=== PATIENT | female | born 1975 | race African-American/Black ===

== ENCOUNTER 2017-01-21 09:20 | Emergency (ER) | payer OTHER ==
[~2017-01-21] VITALS: Ht 162.6 cm; Wt 61.2 kg
[~2017-01-21 09:20] MED LIST: ACET12.5 PO; ALBU8.5H6 IH; ALPR1TAB10 PO; LAMO200T PO; ZOLP5TAB5 PO
[2017-01-21 09:36] VITALS: BP 144/95
[2017-01-21] MEDS ORDERED: OFLO5DRO OD (10:11)
--- NOTE | 2017-01-21 10:12 | PHYS DOC ---
Past Medical History Past Medical History: Bipolar, Bronchitis, Hypertension Past Surgical History: No Surgical History Smokin Pack Per Day Alcohol Use: None Drug Use: None Adult General Chief Complaint Chief Complaint: EYE PROBLEMS HPI HPI Patient is a 41 year old female who presents with right eye itching and drainage starting last night. She woke up this morning with the eye matted shut. She has swelling of the right upper eyelid and aching in the eye. She denies any change in her vision. She has no injury to the eye. She does not wear glasses or contacts. Two of her 3 children were recently diagnosed with pinkeye. Her PCP is Dr. Khoury. Review of Systems Review of Systems Constitutional: Denies fever or chills. [] Eyes: Denies change in visual acuity. Reports right eye itching, drainage, right upper eyelid swelling, and pain. HENT: Denies ear pain, nasal congestion or sore throat. [] Respiratory: Denies cough or shortness of breath. [] Integument: Denies rash or skin lesions. [] Neurologic: Denies headache, focal weakness or sensory changes. [] Allergies Allergies Allergies Coded Allergies Type Severity Reaction Last Updated Verified No Known Drug Allergies 10/27/13 No Physical Exam Physical Exam Constitutional: Well developed, well nourished, no acute distress, non-toxic appearance. [] HENT: Normocephalic, atraumatic, bilateral external ears normal, oropharynx moist, no oral exudates, nose normal. [] Eyes: PERRLA, EOMI, conjunctiva normal. There is dried purulent drainage in the medial canthus of the right eye. There is mild edema of the right upper eyelid. Neck: Normal range of motion, no tenderness, supple, no stridor. [] Skin: Warm, dry, no erythema, no rash. [] Neurologic: Alert and oriented X 3, normal motor function, normal sensory function, no focal deficits noted. [] Psychologic: Affect normal, judgement normal, mood normal. [] Current Patient Data Vital Signs Vital Signs Date Time Temp Pulse Resp B/P Pulse Ox O2 Delivery O2 Flow Rate FiO2 01/21/17 09:36 97.7 63 20 98 Room Air 97.7 EKG EKG [] Radiology/Procedures Radiology/Procedures [] Course & Med Decision Making Course & Med Decision Making Pertinent Labs and Imaging studies reviewed. (See chart for details) [] Dragon Disclaimer Dragon Disclaimer This electronic medical record was generated, in whole or in part, using a voice recognition dictation system. Departure Departure Impression: Primary Impression: Conjunctivitis Disposition: 01 HOME, SELF-CARE Condition: STABLE Referrals: YAMIL KHOURY MD (PCP) Fely SOARSE MD Patient Instructions: Bacterial Conjunctivitis, [id number] Additional Instructions: You were seen today for pinkeye. Please use the prescribed antibiotic eyedrops as directed. Please wash your hands frequently and practice good hand hygiene to avoid spreading the infection to the other eye or to other people. Please follow-up with the state farm agent listed below if you have any change in her vision or worsening of your eye. Return to the emergency department if any new or concerning symptoms. Scripts Ofloxacin (Ocuflox)5 Ml Drops1-2 Drop OD QID 7 Days Prov:RODRIGUEZ CRUZ 01/21/17 Problem Qualifiers Primary Impression: Conjunctivitis Conjunctivitis type: acute Acute conjunctivitis type: unspecified Laterality: right Qualified Code: H10.31 - Unspecified acute conjunctivitis, right eye RODRIGUEZ CRUZ Jan 21, 2017 10:11
== END 2017-01-21 10:15 | disposition home or self-care (01) ==
LOC: ER 09:20
DX: H10.31 Unspecified acute conjunctivitis, right eye (principal); I10 Essential (primary) hypertension; F31.9 Bipolar disorder, unspecified; F17.200 Nicotine dependence, unspecified, uncomplicated
CPT/HCPCS: 99283

== ENCOUNTER 2017-05-14 09:14 | Emergency (ER) | payer MEDICAID, OTHER ==
[~2017-05-14] VITALS: Ht 162.6 cm; Wt 61.2 kg
[~2017-05-14 09:14] MED LIST changes: +OFLO5DRO OD
[2017-05-14 09:20] VITALS: BP 165/91
[2017-05-14] MEDS ORDERED: PROAIR HFA8.5 GM INH (09:52)
[2017-05-14] MEDS ORDERED: AZIT250T PO (09:52)
[2017-05-14] MEDS ORDERED: PRED20TA PO (09:52)
--- NOTE | 2017-05-14 09:52 | PHYS DOC ---
Past Medical History Past Medical History: Bipolar, Bronchitis, Hypertension Past Surgical History: No Surgical History Alcohol Use: None Drug Use: None Adult General Chief Complaint Chief Complaint: COUGH HPI HPI Patient is a 41 year old female presents emergency department stating that she' s had a cough for the last 2 weeks. Patient states that she does have a history of smoking and her daughter is comes that she has been chain smoking. Patient states that she's been having some fever and chills on and off. Shunt states that her cough is sometimes productive with been a clear yellow to greenish color. Patient denies any shortness of air difficulty breathing. Patient does state she's had a history of bronchitis but that's been years ago. Review of Systems Review of Systems Constitutional: hx fever Eyes: Denies change in visual acuity, redness, or eye pain [] HENT: Denies nasal congestion or sore throat [] Respiratory: cough denies shortness of breath [] Cardiovascular: No additional information not addressed in HPI [] GI: Denies abdominal pain, nausea, vomiting, bloody stools or diarrhea [] : Denies dysuria or hematuria [] Musculoskeletal: Denies back pain or joint pain [] Integument: Denies rash or skin lesions [] Neurologic: Denies headache, focal weakness or sensory changes [] Endocrine: Denies polyuria or polydipsia [] Allergies Allergies Allergies Coded Allergies Type Severity Reaction Last Updated Verified No Known Drug Allergies 10/27/13 No Physical Exam Physical Exam Constitutional: Well developed, well nourished, no acute distress, non-toxic appearance. [] HENT: Normocephalic, atraumatic, bilateral external ears normal, oropharynx moist, no oral exudates, nose normal. Bilateral tympanic membranes appear to be normal. Throat with erythematous. Nares appears to have nasal drainage and appears to be erythematous. Eyes: PERRLA, EOMI, conjunctiva normal, no discharge. [] Neck: Normal range of motion, no tenderness, supple, no stridor. [] Cardiovascular:Heart rate regular rhythm, no murmur [] Lungs & Thorax: Bilateral breath sounds clear to auscultation [] Skin: Warm, dry, no erythema, no rash. [] Back: No tenderness Extremities: No tenderness, no cyanosis, no clubbing, ROM intact, no edema. [] Neurologic: Alert and oriented X 3, normal motor function, normal sensory function, no focal deficits noted. [] Psychologic: Affect normal, judgement normal, mood normal. [] Current Patient Data Vital Signs Vital Signs Date Time Temp Pulse Resp B/P (MAP) Pulse Ox O2 Delivery O2 Flow Rate FiO2 05/14/17 09:20 98.2 75 20 97 Room Air 98.2 EKG EKG [] Radiology/Procedures Radiology/Procedures [] Course & Med Decision Making Course & Med Decision Making Pertinent Labs and Imaging studies reviewed. (See chart for details) Placed on prednisone, Zithromax, and a pro-air. Patient was encouraged to stop smoking. Patient was also encouraged to use Tylenol or ibuprofen for fever chills or generalized body aches and discomfort. Also recommended plenty of fluids. Patient agrees with discharge instructions, treatment regimens and follow-up recommendations. Signs and symptoms to return back to emergency department been provided. Patient agrees with discharge instructions treatment regimens and follow-up recommendations. [] Dragon Disclaimer Dragon Disclaimer This electronic medical record was generated, in whole or in part, using a voice recognition dictation system. Departure Departure Impression: Primary Impression: Bronchitis Disposition: HOME, SELF-CARE Condition: STABLE Referrals: YAMIL MISHRA MD (PCP) Patient Instructions: Acute Bronchitis, [id number], Smoking Cessation, Tips For Success, Smoking, You Can Quit, [id number] Additional Instructions: Activity as tolerated Medication as prescribed Tylenol or Ibuprofen for fever, chills, or generalized body aches Drink plenty of fluids Stop smoking Followup with primary care provider in 3-5 days Return to emergency department as needed for sign and symptoms that become worse. Scripts Azithromycin (ZITHROMAX) 250 Mg Tablet 250 MG PO DAILY for ANTI-BIOTIC, #6 TAB 0 Refills Take 2 tablets today then 1 tablet daily until gone Prov: TANG GORDON NETWORK DEVELOPMENT COORDINATOR 05/14/17 Albuterol Sulfate (PROAIR HFA INHALER) 8.5 Gm Hfa.aer.ad 1 PUFF INH PRN Q6HRS Y for SHORTNESS OF BREATH, #1 INHALER 0 Refills Prov: TANG GORDON NETWORK DEVELOPMENT COORDINATOR 05/14/17 Prednisone (PREDNISONE) 20 Mg Tablet 40 MG PO DAILY, #14 TAB Prov: TANG GORDON NETWORK DEVELOPMENT COORDINATOR 05/14/17 TANG GORDON APRN May 14, 2017 09:52
== END 2017-05-14 10:01 | disposition home or self-care (01) ==
LOC: ER 09:14
DX: J20.9 Acute bronchitis, unspecified (principal); I10 Essential (primary) hypertension; F17.210 Nicotine dependence, cigarettes, uncomplicated; F31.9 Bipolar disorder, unspecified
CPT/HCPCS: 99283

== ENCOUNTER 2018-09-23 23:04 | Emergency (ER) | payer OTHER ==
[~2018-09-23] VITALS: Ht 167.6 cm; Wt 61.2 kg
[~2018-09-23 23:04] MED LIST changes: +AZIT250T PO; -LAMO200T PO; +LAMO200T2 PO; +PRED20TA PO; +PROAIR HFA8.5 GM INH
[2018-09-23] MEDS ORDERED: DEXAMETHASONE SOD PHOS 20 MG/5 ML VIAL. IV ONE (23:45)
[2018-09-23] MEDS ORDERED: diphenhydrAMINE 50 MG/ML VIAL IV ONE (23:45)
[2018-09-23] MEDS ORDERED: FAMOTIDINE 20 MG/2 ML VIAL IVP ONE (23:45)
[2018-09-24 00:46] LABS: BASO # 0.1 x10^3/uL (0.0-0.2); BASO % 1 % (0-3); EOS # 0.1 x10^3/uL (0.0-0.7); EOS % 1 % (0-3); HEMATOCRIT 34.2 % (36.0-47.0); HEMOGLOBIN 11.5 g/dL (12.0-15.5); LYMPH # 1.9 x10^3/uL (1.0-4.8); LYMPH % 30 % (24-48); MEAN CORPUSCULAR HEMOGLOBIN 29 pg (25-35); MEAN CORPUSCULAR HGB CONC 34 g/dL (31-37); MEAN CORPUSCULAR VOLUME 87 fL (79-100); MONO # 0.6 x10^3/uL (0.0-1.1); MONO % 10 % (0-9); NEUT # 3.7 x10^3uL (1.8-7.7); NEUT % 58 % (31-73); PLATELET COUNT 273 x10^3/uL (140-400); RED BLOOD COUNT 3.91 x10^6/uL (3.50-5.40); RED CELL DISTRIBUTION WIDTH 14.4 % (11.5-14.5); WHITE BLOOD COUNT 6.4 x10^3/uL (4.0-11.0)
[2018-09-24 00:55] LABS: CREATININE 0.7 mg/dL (0.6-1.0); POTASSIUM 3.5 mmol/L (3.5-5.1)
[2018-09-24 01:01] LABS: ALBUMIN 3.3 g/dL (3.4-5.0); ALBUMIN/GLOBULIN RATIO 0.8 (1.0-1.7); MAGNESIUM 1.8 mg/dL (1.8-2.4); TOTAL BILIRUBIN 0.3 mg/dL (0.2-1.0); TOTAL PROTEIN 7.3 g/dL (6.4-8.2)
[2018-09-24 01:41] VITALS: BP 146/86
[2018-09-24] MEDS ORDERED: FAMO-63 PO (02:14)
[2018-09-24] MEDS ORDERED: DIPH25CA58 PO (02:14)
[2018-09-24] MEDS ORDERED: PRED20TA PO (02:14)
--- NOTE | 2018-09-24 02:14 | PHYS DOC ---
Past Medical History Past Medical History: Bipolar, Bronchitis, Hypertension Past Surgical History: No Surgical History Alcohol Use: Occasionally Drug Use: None Adult General Chief Complaint Chief Complaint: ALLERGIC REACTION HPI HPI Patient is a 43 year old [f__sex] who presents with [] Review of Systems Review of Systems Constitutional: Denies fever or chills [] Eyes: Denies change in visual acuity, redness, or eye pain [] HENT: Denies nasal congestion or sore throat [] Respiratory: Denies cough or shortness of breath [] Cardiovascular: No additional information not addressed in HPI [] GI: Denies abdominal pain, nausea, vomiting, bloody stools or diarrhea [] : Denies dysuria or hematuria [] Musculoskeletal: Denies back pain or joint pain [] Integument: Denies rash or skin lesions [] Neurologic: Denies headache, focal weakness or sensory changes [] Endocrine: Denies polyuria or polydipsia [] All other systems were reviewed and found to be within normal limits, except as documented in this note. Current Medications Current Medications Current Medications Medications (Trade) Dose Ordered Sig/Suha Start Time Stop Time Status Last Admin Dose Admin Dexamethasone Sodium Phosphate (Decadron) 10 mg 1X ONCE 09/23/18 23:45 09/23/18 23:46 DC 09/23/18 23:57 10 MG Diphenhydramine HCl (Benadryl) 50 mg 1X ONCE 09/23/18 23:45 09/23/18 23:46 DC 09/23/18 23:57 50 MG Famotidine (Pepcid Vial) 20 mg 1X ONCE 09/23/18 23:45 09/23/18 23:46 DC 09/24/18 00:21 20 MG Allergies Allergies Allergies Coded Allergies Type Severity Reaction Last Updated Verified No Known Drug Allergies 10/27/13 No Physical Exam Physical Exam Constitutional: Well developed, well nourished, no acute distress, non-toxic appearance. [] HENT: Normocephalic, atraumatic, bilateral external ears normal, oropharynx moist, no oral exudates, nose normal. [] Eyes: PERRLA, EOMI, conjunctiva normal, no discharge. [] Neck: Normal range of motion, no tenderness, supple, no stridor. [] Cardiovascular:Heart rate regular rhythm, no murmur [] Lungs & Thorax: Bilateral breath sounds clear to auscultation [] Abdomen: Bowel sounds normal, soft, no tenderness, no masses, no pulsatile masses. [] Skin: Warm, dry, no erythema, no rash. [] Back: No tenderness, no CVA tenderness. [] Extremities: No tenderness, no cyanosis, no clubbing, ROM intact, no edema. [] Neurologic: Alert and oriented X 3, normal motor function, normal sensory function, no focal deficits noted. [] Psychologic: Affect normal, judgement normal, mood normal. [] Current Patient Data Vital Signs Vital Signs Date Time Temp Pulse Resp B/P (MAP) Pulse Ox O2 Delivery O2 Flow Rate FiO2 09/24/18 01:41 64 16 146/86 (106) 97 Room Air 09/23/18 23:05 98.0 98.0 Lab Values Laboratory Tests Test 09/24/18 00:25 White Blood Count 6.4 x10^3/uL (4.0-11.0) Red Blood Count 3.91 x10^6/uL (3.50-5.40) Hemoglobin 11.5 g/dL (12.0-15.5) L Hematocrit 34.2 % (36.0-47.0) L Mean Corpuscular Volume 87 fL (79-100) Mean Corpuscular Hemoglobin 29 pg (25-35) Mean Corpuscular Hemoglobin Concent 34 g/dL (31-37) Red Cell Distribution Width 14.4 % (11.5-14.5) Platelet Count 273 x10^3/uL (140-400) Neutrophils (%) (Auto) 58 % (31-73) Lymphocytes (%) (Auto) 30 % (24-48) Monocytes (%) (Auto) 10 % (0-9) H Eosinophils (%) (Auto) 1 % (0-3) Basophils (%) (Auto) 1 % (0-3) Neutrophils # (Auto) 3.7 x10^3uL (1.8-7.7) Lymphocytes # (Auto) 1.9 x10^3/uL (1.0-4.8) Monocytes # (Auto) 0.6 x10^3/uL (0.0-1.1) Eosinophils # (Auto) 0.1 x10^3/uL (0.0-0.7) Basophils # (Auto) 0.1 x10^3/uL (0.0-0.2) Sodium Level 137 mmol/L (136-145) Potassium Level 3.5 mmol/L (3.5-5.1) Chloride Level 103 mmol/L (98-107) Carbon Dioxide Level 25 mmol/L (21-32) Anion Gap 9 (6-14) Blood Urea Nitrogen 17 mg/dL (7-20) Creatinine 0.7 mg/dL (0.6-1.0) Estimated GFR (Cockcroft-Gault) 110.0 BUN/Creatinine Ratio 24 (6-20) H Glucose Level 92 mg/dL (70-99) Calcium Level 9.0 mg/dL (8.5-10.1) Magnesium Level 1.8 mg/dL (1.8-2.4) Total Bilirubin 0.3 mg/dL (0.2-1.0) Aspartate Amino Transferase (AST) 18 U/L (15-37) Alanine Aminotransferase (ALT) 16 U/L (14-59) Alkaline Phosphatase 62 U/L (46-116) Total Protein 7.3 g/dL (6.4-8.2) Albumin 3.3 g/dL (3.4-5.0) L Albumin/Globulin Ratio 0.8 (1.0-1.7) L Laboratory Tests 09/24/18 00:25 Laboratory Tests 09/24/18 00:25 EKG EKG [] Radiology/Procedures Radiology/Procedures [] Course & Med Decision Making Course & Med Decision Making Pertinent Labs and Imaging studies reviewed. (See chart for details) [] Dragon Disclaimer Dragon Disclaimer This electronic medical record was generated, in whole or in part, using a voice recognition dictation system. Departure Departure Impression: Primary Impression: Angioedema Disposition: 01 HOME, SELF-CARE Condition: STABLE Referrals: UNKNOWN PCP NAME (PCP) Patient Instructions: Angioedema, [id number] Additional Instructions: Discontinue your medication with amlodipine/benazepril (for blood pressure). That is potentially what is causing your facial swelling. Scripts Diphenhydramine Hcl (BENADRYL) 25 Mg Capsule 1 CAP PO QID for 5 Days, #20 CAP 0 Refills Prov: ZORA SELLERS DO 09/24/18 Famotidine (PEPCID) 20 Mg Tablet 20 MG PO BID, #10 TAB Prov: ZORA SELLERS DO 09/24/18 Prednisone (PREDNISONE) 20 Mg Tablet 2 TAB PO DAILY, #10 TAB Prov: ZORA SELLERS DO 09/24/18 Problem Qualifiers Primary Impression: Angioedema Encounter type: initial encounter Qualified Codes: T78.3XXA - Angioneurotic edema, initial encounter ZORA SELLERS DO Sep 24, 2018 02:14
== END 2018-09-24 02:25 | disposition home or self-care (01) ==
LOC: ER 23:04
DX: T78.3XXA Angioneurotic edema, initial encounter (principal); I10 Essential (primary) hypertension; F31.9 Bipolar disorder, unspecified
CPT/HCPCS: 36415; 80053; 83735; 85025; 96374; 96375; 99284; J1100; J1200; J3490; 99283-25

== ENCOUNTER 2018-12-18 07:09 | Emergency (ER) | payer MEDICAID, OTHER ==
[~2018-12-18] VITALS: Ht 162.6 cm; Wt 65.8 kg
[~2018-12-18 07:09] MED LIST changes: +ALBU2.5V8 INH; +DIPH25CA58 PO; +FAMO-63 PO; -PROAIR HFA8.5 GM INH
[2018-12-18] MEDS ORDERED: HYDR-2145 PO (07:27)
[2018-12-18] MEDS ORDERED: PRED50TA PO (07:27)
[2018-12-18 07:30] VITALS: BP 162/87
--- NOTE | 2018-12-18 07:32 | PHYS DOC ---
Past Medical History Past Medical History: Anxiety, Bipolar, Bronchitis, Depression, Hypertension Past Surgical History: No Surgical History Alcohol Use: None Drug Use: None Adult General Chief Complaint Chief Complaint: ALLERGIC REACTION HPI HPI Patient is a 43 year old female presenting with rash is very itchy she says that her face feels swollen she says that her hands itch and swell up when she washes the dishes she thinks it is the amlodipine causing she's had these symptoms for 3 weeks she has been on the amlodipine for 2 months she has not been on benazepril Review of Systems Review of Systems Constitutional: Denies fever or chills [] Eyes: Denies change in visual acuity, redness, or eye pain [] HENT: Denies nasal congestion or sore throat [] Respiratory: Denies cough or shortness of breath [] Musculoskeletal: Denies back pain or joint pain [] Integume Neurologic: Denies headache, focal weakness or sensory changes [] Endocrine: Denies polyuria or polydipsia [] All other systems were reviewed and found to be within normal limits, except as documented in this note. Current Medications Current Medications Current Medications Medications (Trade) Dose Ordered Sig/Suha Start Time Stop Time Status Last Admin Dose Admin Methylprednisolone Sodium Succinate (SOLU-Medrol 125MG VIAL) 125 mg 1X ONCE 12/18/18 08:00 12/18/18 08:01 Allergies Allergies Allergies Coded Allergies Type Severity Reaction Last Updated Verified No Known Drug Allergies 10/27/13 No Physical Exam Physical Exam Constitutional: Well developed, well nourished, no acute distress, non-toxic appearance. [] HENT: Normocephalic, atraumatic, bilateral external ears normal, oropharynx moist, no oral exudates, nose normal. []Oropharynx appears normal with no evidence of swelling Eyes: PERRLA, EOMI, conjunctiva normal, no discharge. [] Neck: Normal range of motion, no tenderness, supple, no stridor. [] Cardiovascular:Heart rate regular rhythm, no murmur [] Lungs & Thorax: Bilateral breath sounds clear to auscultation [] Abdomen: Bowel sounds normal, soft, no tenderness, no masses, no pulsatile masses. [] Skin: Scattered urticaria noted on the trunk and arms Back: No tenderness, no CVA tenderness. [] Extremities: No tenderness, no cyanosis, no clubbing, ROM intact, no edema. [] Neurologic: Alert and oriented X 3, normal motor function, normal sensory function, no focal deficits noted. [] Psychologic: Affect normal, judgement normal, mood normal. [] Current Patient Data Vital Signs Vital Signs Date Time Temp Pulse Resp B/P (MAP) Pulse Ox O2 Delivery O2 Flow Rate FiO2 12/18/18 07:21 98.7 82 16 161/86 (111) 99 Room Air 98.7 EKG EKG [] Radiology/Procedures Radiology/Procedures [] Course & Med Decision Making Course & Med Decision Making Pertinent Labs and Imaging studies reviewed. (See chart for details) []Urticaria nos recurrent in nature I suppose it could be from amlodipine patient is adamant about discontinuing this medication so I prescribed hydrochlorothiazide instead and advised blood pressure check in 2 weeks in addition prednisone was given for her symptoms and she voiced understanding of the instructions no airway involvement she is off the NELLA inhibitor now Dragon Disclaimer Dragon Disclaimer This electronic medical record was generated, in whole or in part, using a voice recognition dictation system. Departure Departure Impression: Primary Impression: Urticaria Additional Impression: Elevated blood pressure reading Disposition: HOME, SELF-CARE Condition: STABLE Patient Instructions: Hives, [id number] Scripts Hydrochlorothiazide (HYDROCHLOROTHIAZIDE TABLET ) 25 Mg Tablet 25 MG PO DAILY for DIURETIC, #30 TAB 0 Refills Prov: YULIA REYNOLDS MD 12/18/18 Prednisone (PREDNISONE) 50 Mg Tablet 1 TAB PO DAILY, #5 TAB Prov: YULIA REYNOLDS MD 12/18/18 Problem Qualifiers YULIA REYNOLDS MD Dec 18, 2018 07:32
[2018-12-18] MEDS ORDERED: methylPREDNISolone SOD SUCC PF 125 MG/2 ML VIAL. IM ONE (08:00)
== END 2018-12-18 08:07 | disposition home or self-care (01) ==
LOC: ER 07:09
DX: L50.9 Urticaria, unspecified (principal); I10 Essential (primary) hypertension; F31.9 Bipolar disorder, unspecified; F41.9 Anxiety disorder, unspecified
CPT/HCPCS: 96372; 99283; J2930

== ENCOUNTER 2020-05-14 09:37 | Emergency (ER) | payer OTHER ==
[~2020-05-14] VITALS: Ht 162.6 cm; Wt 70.0 kg
[~2020-05-14 09:37] MED LIST changes: +HYDR-2145 PO; -LAMO200T2 PO; +LAMO200T6 PO; +PRED50TA PO
[2020-05-14 09:55] VITALS: BP 178/87
[2020-05-14] MEDS ORDERED: methylPREDNISolone SOD SUCC PF 125 MG/2 ML VIAL. IM ONE (10:00)
[2020-05-14] MEDS ORDERED: IPRATRPIUM/ALBUTEROL 0.5/2.5MG 3 ML NEBU. NEB ONE (10:00)
--- NOTE | 2020-05-14 10:19 | RAD ---
Chest, PA and Lateral: Technique: PA and lateral views of the chest were obtained. History: Cough. Comparison: None available. Findings: The heart and pulmonary vasculature appear within normal limits. The lungs are clear. The pleural margins are clear. Impression: No acute chest process is seen. Electronically signed by: Dejan Reynolds MD (05/14/2020 10:16 AM) [id number]
[2020-05-14] MEDS ORDERED: AZIT250T PO (10:42)
--- NOTE | 2020-05-14 10:42 | PHYS DOC ---
Past Medical History Past Medical History: Anxiety, Bipolar, Bronchitis, Depression, Hypertension Past Surgical History: No Surgical History Smoking Status: Current Every Day Smoker Alcohol Use: Occasionally Drug Use: None General Adult EDM: Chief Complaint: COUGH HPI: HPI: Patient is a 44-year-old heavy smoker states she smokes 2 packs of cigarettes a day. She is been diagnosed with bronchitis recently. She was started on levofloxacin and developed a rash so she stopped that antibiotic. She was supposed to get a chest x-ray this coming week but felt her symptoms were becoming bad enough that she needed to present today to hopefully get an x-ray. She denies any fever chills or sweats. She has had no hemoptysis. She states she wants to get better so she can continue to smoke. She is also been on steroids. [] Review of Systems: Review of Systems: Constitutional: Denies fever or chills. [] Eyes: Denies change in visual acuity. [] HENT: Denies nasal congestion or sore throat. [] Respiratory: Per HPI h. [] Cardiovascular: Denies chest pain or edema. [] GI: Denies abdominal pain, nausea, vomiting, bloody stools or diarrhea. [] : Denies dysuria. [] Musculoskeletal: Denies back pain or joint pain. [] Integument: Denies rash. [] Neurologic: Denies headache, focal weakness or sensory changes. [] Endocrine: Denies polyuria or polydipsia. [] Lymphatic: Denies swollen glands. [] Psychiatric: Denies depression or anxiety. [] Heart Score: Risk Factors: Risk Factors: DM, Current or recent (<one month) smoker, HTN, HLP, family history of CAD, obesity. Risk Scores: Score 0 - 3: 2.5% MACE over next 6 weeks - Discharge Home Score 4 - 6: 20.3% MACE over next 6 weeks - Admit for Clinical Observation Score 7 - 10: 72.7% MACE over next 6 weeks - Early Invasive Strategies Current Medications: Current Medications Medications (Trade) Dose Ordered Sig/Suha Start Time Stop Time Status Last Admin Dose Admin Albuterol/ Ipratropium (Duoneb) 6 ml 1X ONCE 05/14/20 10:00 05/14/20 10:01 DC 05/14/20 10:21 6 ML Methylprednisolone Sodium Succinate (SOLU-Medrol 125MG VIAL) 125 mg 1X ONCE 05/14/20 10:00 05/14/20 10:01 DC Allergies: Allergies: Allergies Coded Allergies Type Severity Reaction Last Updated Verified No Known Drug Allergies 10/27/13 No Physical Exam: PE: Constitutional: Well developed, well nourished, mild respiratory e distress, non-toxic appearance. [] HENT: Normocephalic, atraumatic, bilateral external ears normal, oropharynx moist, no oral exudates, nose normal. [] Eyes: PERRLA, EOMI, conjunctiva normal, no discharge. [] Neck: Normal range of motion, no tenderness, supple, no stridor. [] Cardiovascular:Heart rate regular rhythm, no murmur [] Lungs & Thorax: Scattered wheezes throughout both lungs [] Abdomen: Bowel sounds normal, soft, no tenderness, no masses, no pulsatile masses. [] Skin: Warm, dry, no erythema, no rash. [] Back: No tenderness, no CVA tenderness. [] Extremities: No tenderness, no cyanosis, no clubbing, ROM intact, no edema. [] Neurologic: Alert and oriented X 3, normal motor function, normal sensory function, no focal deficits noted. [] Psychologic: Extremely anxious [] Current Patient Data: Vital Signs: Vital Signs Date Time Temp Pulse Resp B/P (MAP) Pulse Ox O2 Delivery O2 Flow Rate FiO2 05/14/20 10:25 Room Air 05/14/20 09:55 98.7 63 18 178/87 (117) 96 98.7 EKG: EKG: [] Radiology/Procedures: Radiology/Procedures: []REASON: cough PROCEDURE: CHEST PA & LATERAL Chest, PA and Lateral: Technique: PA and lateral views of the chest were obtained. History: Cough. Comparison: None available. Findings: The heart and pulmonary vasculature appear within normal limits. The lungs are clear. The pleural margins are clear. Impression: No acute chest process is seen. Course & Med Decision Making: Course & Med Decision Making Pertinent Labs and Imaging studies reviewed. (See chart for details) [ED course: Evaluation reveals a 44-year-old female with some wheezing and a recent diagnosis of bronchitis. She is a heavy smoker. She was given 2 DuoNeb's and 125 of Solu-Medrol IM. I encouraged her to continue her outpatient steroids and given the fact that she has had symptoms for coming up on 2 weeks we will go ahead and start her on a Z-Mitch.] Brandi Disclaimer: Brandi Disclaimer: This electronic medical record was generated, in whole or in part, using a voice recognition dictation system. Departure Departure Impression: Primary Impression: Bronchitis Disposition: 01 HOME, SELF-CARE Condition: STABLE Referrals: JAHAIRA AVILEZ APRN (PCP) Patient Instructions: Chronic Asthmatic Bronchitis, Smoking Cessation, Smoking Hazards, Smoking, You Can Quit, [id number] Scripts Azithromycin (ZITHROMAX) 250 Mg Tablet 1 PKG PO UD for bronchitis, #6 TAB Take 2 tablets on day 1 and then 1 tablet each day for the next 4 days as directed Prov: MEL LONGO DO 05/14/20 Justicifation of Admission Dx: Justifications for Admission: Justification of Admission Dx: No MEL LONGO DO May 14, 2020 10:42
== END 2020-05-14 11:03 | disposition home or self-care (01) ==
LOC: ER 09:37
DX: J40 Bronchitis, not specified as acute or chronic (principal); F41.9 Anxiety disorder, unspecified; F31.9 Bipolar disorder, unspecified; I10 Essential (primary) hypertension; F17.200 Nicotine dependence, unspecified, uncomplicated; F17.210 Nicotine dependence, cigarettes, uncomplicated
CPT/HCPCS: 71046; 94640; 96372; 99284; J2930

== ENCOUNTER 2021-09-15 08:42 | Emergency (ER) | payer OTHER ==
[~2021-09-15] VITALS: Ht 175.3 cm; Wt 68.6 kg
[2021-09-15 08:45] VITALS: BP 144/88
[2021-09-15] MEDS ORDERED: HYDROcodone/APAP 5/325MG 1 TAB TABLET PO ONE (09:00)
--- NOTE | 2021-09-15 09:25 | RAD ---
Three-view right foot dated 09/15/2021. No comparison available. CLINICAL INDICATION: Pain. FINDINGS: 3 views right foot show normal bony alignment. No displaced fracture. No periostitis or bone destruct ion. No acute osseous or articular abnormality. IMPRESSION: No acute radiographic abnormality. Electronically signed by: Carlos Fonseca MD (09/15/2021 9:23 AM) [id number]
[2021-09-15] MEDS ORDERED: HYDR-2761 PO ×2 (09:35→09:37)
--- NOTE | 2021-09-15 09:38 | PHYS DOC ---
Past Medical History Past Medical History: Anxiety, Bipolar, Bronchitis, Depression, Hypertension Past Surgical History: No Surgical History Smoking Status: Never Smoker Alcohol Use: None Drug Use: None General Adult EDM: Chief Complaint: FOOT INJURY PAIN HPI: HPI: Patient is a 46 year old female who presents with right foot pain. States it started in June when a greater than 200 pound person stepped on the arch of her foot. Has had pain on the lateral portion of her foot since. Initially had a large amount of swelling, but this is improved. States that the pain has been waxing and waning, and over the last several days has been unable to walk on the foot. Denies any fever/chills, new swelling, pain at the ankle. No new injuries. Review of Systems: Review of Systems: Please see HPI for pertinent positives negatives Heart Score: C/O Chest Pain: No Risk Factors: Risk Factors: DM, Current or recent (<one month) smoker, HTN, HLP, family history of CAD, obesity. Risk Scores: Score 0 - 3: 2.5% MACE over next 6 weeks - Discharge Home Score 4 - 6: 20.3% MACE over next 6 weeks - Admit for Clinical Observation Score 7 - 10: 72.7% MACE over next 6 weeks - Early Invasive Strategies Current Medications: Current Medications Medications (Trade) Dose Ordered Sig/Suha Start Time Stop Time Status Last Admin Dose Admin Acetaminophen/ Hydrocodone Bitart (Lortab 5/325) 1 tab 1X ONCE 09/15/21 09:00 09/15/21 09:12 DC 09/15/21 09:18 1 TAB Allergies: Allergies: Allergies Coded Allergies Type Severity Reaction Last Updated Verified No Known Drug Allergies 09/15/21 No Physical Exam: PE: Constitutional: Well developed, well nourished, no acute distress, non-toxic appearance. [] HENT: Normocephalic, atraumatic Eyes: conjunctiva normal, no discharge. [] Neck: Normal range of motion, no tenderness, supple, no stridor. [] Cardiovascular: Regular rate Lungs & Thorax: Normal work of breathing Skin: Warm, dry, no erythema, no rash. [] Extremities: Right lower extremity with 2+ DP and PT pulse. Normal range of motion of the ankle. No tenderness in the midfoot or over the Lisfranc joint. No tenderness in the toes. No tenderness over the calcaneus. No medial or lateral malleoli or tenderness. + Tenderness to palpation over the base of the fifth metatarsal and along the course of the full fifth metatarsal. Neurologic: Alert and oriented X 3, normal motor function, normal sensory function, no focal deficits noted. [] Psychologic: Affect normal, judgement normal, mood normal. [] Current Patient Data: Vital Signs: Vital Signs Date Time Temp Pulse Resp B/P (MAP) Pulse Ox O2 Delivery O2 Flow Rate FiO2 09/15/21 09:18 16 97 09/15/21 08:45 98.6 144/88 (106) Room Air 98.6 EKG: EKG: [] Radiology/Procedures: Radiology/Procedures: [facility] [address] [place], [place] [id number] IMAGING REPORT Signed PATIENT: MEME PEREZ LACCOUNT: [id number] : 1975 LOCATION: ER AGE: 46 SEX: F EXAM STATUS: PRE ER ORD. PHYSICIAN: YAMIL KELLEY MD REASON: pain over fifth metatarsal PROCEDURE: FOOT RIGHT 3V Three-view right foot dated 09/15/2021. No comparison available. CLINICAL INDICATION: Pain. FINDINGS: 3 views right foot show normal bony alignment. No displaced fracture. No periostitis or bone destruction. No acute osseous or articular abnormality. IMPRESSION: No acute radiographic abnormality. Electronically signed by: Carlos Fonseca MD (09/15/2021 9:23 AM) [id number] DICTATED and SIGNED BY: CARLOS FONSECA MD DATE: 09/15/21 [id number] [] Course & Med Decision Making: Course & Med Decision Making Pertinent Labs and Imaging studies reviewed. (See chart for details) Patient is a 46-year-old female who presents with greater than a month of right foot pain after someone stepped on her midfoot. Good neurologic and vascular exam. Has tenderness focally over the fifth metatarsal, as well as the anterior talofibular ligament. Pain is posttraumatic, no evidence of an infectious, vascular, or neurologic process. X-ray of the foot was negative. Will refer to orthopedics for further management. Brandi Disclaimer: Brandi Disclaimer: This electronic medical record was generated, in whole or in part, using a voice recognition dictation system. Departure Departure Impression: Primary Impression: Right foot pain Disposition: HOME / SELF CARE / HOMELESS Condition: STABLE Referrals: JAHAIRA AVILEZ APRN (PCP) ANANT NARANJO Jr. DO Please call the orthopedic office of Dr. Naranjo to schedule a follow-up appointment. Additional Instructions: Your x-ray was negative. There is no evidence of any broken bones. This may be a soft tissue injury, that we cannot find with x-ray. For further work-up please call and make an appointment with Dr. Naranjo, the orthopedic surgeon. You can walk on the foot as tolerated, but if it is too painful please use crutches. For pain tylenol and ibuprofen are best used on a schedule. Please alternate between the two. -Tylenol 1000 mg every 6 hours (do not exceed 4000 mg in one day) -Ibuprofen 400 mg every 6 hours. Take with food. Do not take for more than 1 week. Scripts Hydrocodone Bit/Acetaminophen (HYDROCODONE-APAP 5-325 ) 1 Tab Tablet 1 TAB PO PRN Q6HRS PRN for PAIN, #8 TAB 0 Refills Prov: YAMIL KELLEY MD 09/15/21 YAMIL KELLEY MD Sep 15, 2021 09:38
== END 2021-09-15 09:47 | disposition home or self-care (01) ==
LOC: ER 08:42
DX: M79.671 Pain in right foot (principal); F31.9 Bipolar disorder, unspecified; I10 Essential (primary) hypertension
CPT/HCPCS: 73630; 99283